=== PATIENT | female | born 1990 | race Caucasian/White ===

== ENCOUNTER 2017-01-09 15:59 | Emergency (ER) | payer OTHER ==
[2017-01-09 16:15] VITALS: BP 141/77; PULSE 92; TEMP 98.3; BMI 38.2
--- NOTE | 2017-01-09 16:49 | PDOC ---
History of Present Illness - General Chief Complaint: Sore Throat Stated Complaint: SORE THROAT Time Seen by Provider: 01/09/17 16:27 History Source: Patient Exam Limitations: No Limitations - History of Present Illness Initial Comments: 01/09/17 16:44 Mom came in for evaluation of cough, chills and fever, runny nose for 2 days. States daughter has been ill for a couple weeks, comes and goes. And thinks may have same type of problem. Has taken some Tylenol with minimal resolved. 01/09/17 16:46 Timing/Duration: reports: just prior to arrival, changing over time, getting worse Severity: reports: moderate Past History - Travel Traveled outside of the country in the last 30 days: No Close contact w/someone who was outside of country & ill: No - Past Medical History Allergies/Adverse Reactions: Allergies Allergy/AdvReac Type Severity Reaction Status Date / Time No Known Allergies Allergy Verified 01/09/17 16:12 Home Medications: Ambulatory Orders NK [No Known Home Medication] 01/09/17 GI Disorders: Yes (GASTRITIS.) - Surgical History Abdominal Surgery: No - Immunization History Immunization Up to Date: Yes - Psycho/Social/Smoking Cessation Hx Anxiety: Yes Suicidal Ideation: No Smoking History: Former smoker Have you smoked in the past 12 months: Yes Number of Cigarettes Smoked Daily: 5 Information on smoking cessation initiated: No 'Breaking Loose' booklet given: 08/09/15 Hx Alcohol Use: No Drug/Substance Use Hx: No Substance Use Type: None Respiratory Specific PMHX - Complaint Specific PMHX Bronchitis: No Pneumonia: No Review of Systems - Review of Systems Able to Perform ROS?: Yes Is the patient limited Macanese proficient: Yes Constitutional: Yes: Symptoms Reported, See HPI, Fever, Malaise HEENTM: Yes: Symptoms Reported, See HPI, Nose Congestion. No: Throat Pain, Throat Swelling Respiratory: Yes: Symptoms reported, See HPI, Cough Musculoskeletal: Yes: Symptoms Reported, See HPI (moist nonproductive), Muscle Pain Integumentary: Yes: Symptoms Reported, See HPI All Other Systems: Reviewed and Negative *Physical Exam - Vital Signs Last Vital Signs Temp Pulse Resp BP Pulse Ox 98.3 F 92 H 18 141/77 100 01/09/17 16:13 01/09/17 16:13 01/09/17 16:13 01/09/17 16:13 01/09/17 16:13 - Physical Exam General Appearance: Yes: Nourished, Appropriately Dressed, Apparent Distress HEENT: positive: BAKARI, Normal ENT Inspection, TMs Normal, Pharynx Normal, Nasal Congestion, Rhinorrhea (congested but landmarks easily visualized). negative: Pharyngeal Erythema, Tonsillar Exudate Neck: positive: Tender, Supple, Lymphadenopathy (R), Lymphadenopathy (L) Respiratory/Chest: positive: Lungs Clear (no wheezing or retractions), Normal Breath Sounds. 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 Will treat conservatively and antihistamines./ *DC/Admit/Observation/Transfer Diagnosis at time of Disposition: Upper respiratory infection, viral - Discharge Dispostion Disposition: HOME Condition at time of disposition: Stable Admit: No - Referrals Referrals: Kiki Bardales MD [Primary Care Provider] - - Patient Instructions Printed Discharge Instructions: DI for Viral Upper Respiratory Infection -- Adult Additional Instructions: Rest, drink lots of fluids: Teas, water, soups, Pedialyte Saltwater gargles Steamy showers/seem to face break up mucus Avoid contact with others until fevers and cough resolved Lots of handwashing and good hygiene Continue [id number] medications for symptomatic relief Tylenol or Motrin for fever and pain Followup with private physician in one to 2 days as needed Return to emergency department for worsened symptoms, fevers, dehydration - Post Discharge Activity Work/School Note: Back to Work
== END 2017-01-09 17:55 | disposition home or self-care (01) ==
LOC: JERFT 15:59
DX: J06.9 Acute upper respiratory infection, unspecified (principal); B97.89 Other viral agents as the cause of diseases classified elsewhere
CPT/HCPCS: 87804; 99281-25

== ENCOUNTER 2017-09-27 08:10 | Emergency (ER) | payer BC, OTHER ==
[2017-09-27 08:20] VITALS: BP 149/91; PULSE 95; TEMP 98.4; BMI 36.6
--- NOTE | 2017-09-27 08:46 | PDOC ---
History of Present Illness - General Chief Complaint: Cold Symptoms Stated Complaint: PAIN/ THROAT, BACK Time Seen by Provider: 09/27/17 08:32 - History of Present Illness Initial Comments: 09/27/17 08:40 27-year-old female with a history of gastritis presents with 5 days of sore throat, nonproductive cough, body aches, runny nose, chill, loose stools and decreased appetite. The patient reports she presents today because the cough kept her up all night. The patient went to [facility] twice this week, was given cefdinir, prednisone and a cough suppressant which she states are minimally helping. She also reports a gradual onset bifrontal dull headache. She does not have a primary care doctor. Denies any chest pain or shortness of breath. Denies focal weakness or numbness. Denies abdominal pain. Denies urinary symptoms or vaginal discharge/bleeding. Past History - Past Medical History Allergies/Adverse Reactions: Allergies Allergy/AdvReac Type Severity Reaction Status Date / Time No Known Allergies Allergy Verified 09/27/17 08:20 Home Medications: Ambulatory Orders NK [No Known Home Medication] 01/09/17 COPD: No GI Disorders: Yes (GASTRITIS.) - Surgical History Abdominal Surgery: No - Immunization History Immunization Up to Date: Yes - Suicide/Smoking/Psychosocial Hx Smoking History: Never smoked Have you smoked in the past 12 months: Yes Number of Cigarettes Smoked Daily: 5 'Breaking Loose' booklet given: 08/09/15 Hx Alcohol Use: No Drug/Substance Use Hx: No Substance Use Type: None Review of Systems - Review of Systems Comments:: 09/27/17 08:48 GENERAL/CONSTITUTIONAL: +fever and chills. No weakness. HEAD, EYES, EARS, NOSE AND THROAT: No change in vision. No ear pain or discharge. +sore throat. GASTROINTESTINAL: No nausea, vomiting, constipation. +loose stools GENITOURINARY: No dysuria, frequency, or change in urination. CARDIOVASCULAR: No chest pain or shortness of breath. RESPIRATORY: +cough, no wheezing, or hemoptysis. MUSCULOSKELETAL: +bodyaches. No neck or back pain. SKIN: No rash NEUROLOGIC: + headache, no vertigo, loss of consciousness, or change in strength /sensation. ENDOCRINE: No increased thirst. No abnormal weight change. HEMATOLOGIC/LYMPHATIC: No anemia, easy bleeding, or history of blood clots. ALLERGIC/IMMUNOLOGIC: No hives or skin allergy. *Physical Exam - Vital Signs Last Vital Signs Temp Pulse Resp BP Pulse Ox 98.4 F 95 H 20 149/91 98 09/27/17 08:17 09/27/17 08:17 09/27/17 08:17 09/27/17 08:17 09/27/17 08:17 - Physical Exam Comments: 09/27/17 08:50 GENERAL: Awake, alert, and fully oriented, in no acute distress HEAD: No signs of trauma EYES: PERRLA, EOMI, sclera anicteric, conjunctiva clear ENT: Auricles normal inspection, hearing grossly normal, nares patent, 1+ tonsillar erythema and edema with no exudates. No palatal petechiae. Moist mucosa NECK: Normal ROM, supple,JVD, or masses. + tender cervical LAD LUNGS: Breath sounds equal, clear to auscultation bilaterally. No wheezes, and no crackles HEART: Regular rate and rhythm, normal S1 and S2, no murmurs, rubs or gallops ABDOMEN: Soft, nontender, normoactive bowel sounds. No guarding, no rebound. No masses EXTREMITIES: Normal range of motion, no edema. No clubbing or cyanosis. No cords, erythema, or tenderness NEUROLOGICAL: Normal speech, cranial nerves intact, negative pronator drift, 5/ 5 strength in all 4 extremities, normal sensation to light touch in all 4 extremities, normal cerebellar exam, normal gait, normal reflexes and tone SKIN: Warm, Dry, normal turgor, no rashes or lesions noted. Medical Decision Making - Medical Decision Making 09/27/17 08:53 27-year-old female with a history of gastritis presents with 5 days of viral symptoms. Unlikely strep throat as patient has early tested negative at [facility] and patient also has a cough. Oral exam with no exudates or petechiae. Patient possibly has influenza but is out of the window for treatment. Advised the patient to stay hydrated, continue the steroids, get a humidifier for the cough at night, and to use her albuterol inhaler. Will give the patient work note so that she can rest. I discussed the physical exam findings, ancillary test results and final diagnoses with the patient. I answered all of the patient's questions. The patient was satisfied with the care received and felt comfortable with the discharge plan and treatment plan. The patient will call their primary care physician within 24 hours to arrange follow-up and will return to the Emergency Department with any new, persistent or worsening symptoms. *DC/Admit/Observation/Transfer Diagnosis at time of Disposition: Upper respiratory infection, viral - Discharge Dispostion Disposition: HOME Condition at time of disposition: Stable Admit: No - Referrals Referrals: Josemanuel Moreno MD [Staff Physician] - - Patient Instructions Printed Discharge Instructions: How to Avoid a Cold or Flu, DI for Viral Upper Respiratory Infection -- Adult, DI for Acute Bronchitis Additional Instructions: Call Dr. Moreno's office to establish care with a primary doctor within 1 week. Continue to take the cough medication and prednisone, and use your inhaler every 4 hours as needed for the cough. Use a humidifier at home at this may help with the cough as well. Return to the emergency department if you have any new, worsening or concerning symptoms. - Post Discharge Activity - Attestations Physician Attestion: 09/27/17 08:56 I, Dr. Veronica Brooks MD, attest that this document has been prepared under my direction and personally reviewed by me in its entirety. I further attest, that it accurately reflects all work, treatment, procedures and medical decision -making performed by me.
== END 2017-09-27 09:35 | disposition home or self-care (01) ==
LOC: JER 08:10
DX: J06.9 Acute upper respiratory infection, unspecified (principal); B97.89 Other viral agents as the cause of diseases classified elsewhere; F17.210 Nicotine dependence, cigarettes, uncomplicated
CPT/HCPCS: 99281-25

== ENCOUNTER 2018-08-02 08:43 | Emergency (ER) | payer BC ==
[2018-08-02 08:51] VITALS: BP 119/82; PULSE 84; TEMP 99; BMI 39.1
--- NOTE | 2018-08-02 09:17 | PDOC ---
History of Present Illness - General Chief Complaint: Urinary Problem Stated Complaint: URINARY PROBLEM Time Seen by Provider: 08/02/18 09:11 History Source: Patient Exam Limitations: Clinical Condition - History of Present Illness Initial Comments: 08/02/18 09:14 Patient with no sig Past medical history presenting with complain of urinary frequency and dysuria since yesterday. Denies fever, chills, abdominal pain, back pain, nausea or vomiting. Denies any vaginal discharge or irritation. Timing/Duration: 24 hours Past History - Past Medical History Allergies/Adverse Reactions: Allergies Allergy/AdvReac Type Severity Reaction Status Date / Time No Known Allergies Allergy Verified 08/02/18 08:48 Home Medications: Ambulatory Orders Ciprofloxacin HCl [Cipro] 500 mg PO BID #10 tablet 08/02/18 COPD: No GI Disorders: Yes (GASTRITIS.) - Surgical History Abdominal Surgery: No - Immunization History Immunization Up to Date: Yes - Suicide/Smoking/Psychosocial Hx Smoking History: Current every day smoker Have you smoked in the past 12 months: Yes Number of Cigarettes Smoked Daily: 5 Information on smoking cessation initiated: Yes 'Breaking Loose' booklet given: 08/02/18 Hx Alcohol Use: No Drug/Substance Use Hx: No Substance Use Type: None Review of Systems - Review of Systems Able to Perform ROS?: Yes Is the patient limited Upper Sorbian proficient: No Constitutional: No: Chills, Fever, Malaise Respiratory: No: Symptoms reported Cardiac (ROS): No: Symptoms Reported ABD/GI: No: Symptoms Reported, Nausea, Vomiting : Yes: Dysuria, Frequency, Urgency. No: Burning, Discharge, Flank Pain, Hematuria All Other Systems: Reviewed and Negative *Physical Exam - Vital Signs Last Vital Signs Temp Pulse Resp BP Pulse Ox 99.0 F 84 18 119/82 96 08/02/18 08:48 08/02/18 08:48 08/02/18 08:48 08/02/18 08:48 08/02/18 08:48 - Physical Exam Comments: 08/02/18 09:15 GENERAL: Well developed, well nourished. Awake and alert. No acute distress. CARDIOVASCULAR: Regular rate and rhythm. No murmurs, rubs, or gallops. Distal pulses are 2+ and symmetric. PULMONARY: No evidence of respiratory distress. Lungs clear to auscultation bilaterally. No wheezing, rales or rhonchi. ABDOMINAL: Soft. Non-tender. Non-distended. No rebound or guarding. No organomegaly. Normoactive bowel sounds. MUSCULOSKELETAL Normal range of motion at all joints. No bony deformities or tenderness. No CVA tenderness. EXTREMITIES: No cyanosis. No clubbing. No edema. No calf tenderness. SKIN: Warm and dry. Normal capillary refill. No rashes. No jaundice. NEUROLOGICAL: Alert, awake, appropriate. Gait is normal without ataxia. PSYCHIATRIC: Cooperative. Good eye contact. Appropriate mood and affect. General Appearance: Yes: Nourished, Appropriately Dressed. No: Apparent Distress Medical Decision Making - Medical Decision Making 08/02/18 09:16 Patient with no significant past medical history present with complain of 2 day history of urinary frequency dysuria and urgency with no other symptoms. UA and urine culture sent. Urine hCG ordered. Treat based on lab results 08/02/18 09:58 Urine hCG negative. Urinalysis shows mild leukocytosis. Patient be discharged home on outpatient treatment with Cipro antibiotics pending culture results *DC/Admit/Observation/Transfer Diagnosis at time of Disposition: UTI (urinary tract infection) Qualifiers: Urinary tract infection type: acute cystitis Hematuria presence: without hematuria Qualified Code(s): N30.00 - Acute cystitis without hematuria - Discharge Dispostion Disposition: HOME Condition at time of disposition: Stable Decision to Admit order: No - Prescriptions Prescriptions: Ciprofloxacin HCl [Cipro] 500 mg PO BID #10 tablet - Referrals Referrals: Mauricio Mcfadden MD [Staff Physician] - - Patient Instructions Printed Discharge Instructions: DI for Urinary Tract Infection (UTI) Additional Instructions: Your urine dip showed mild bacteria. Take prescribed medication as prescribed. Use be contacted which urine culture results. Increase fluid intake - Post Discharge Activity
[2018-08-02 09:28] LABS: HCG,QUALITATIVE URINE Negative
[2018-08-02 09:43] LABS: URINE APPEARANCE CLEAR; URINE BILIRUBIN NEGATIVE (<2.0 mg/dL); URINE COLOR LTYELLOW; URINE GLUCOSE (UA) NEGATIVE (NEGATIVE); URINE KETONE NEGATIVE (NEGATIVE); URINE LEUK ESTERASE TRACE (NEGATIVE); URINE NITRITE NEGATIVE (NEGATIVE); URINE PROTEIN NEGATIVE (NEGATIVE); URINE UROBILINOGEN NEGATIVE mg/dL (0.2-1.0)
[2018-08-02 09:49] LABS: EPI CELLS RARE /HPF (FEW); URINE BACTERIA RARE /hpf (NONE SEEN)
== END 2018-08-02 10:04 | disposition home or self-care (01) ==
LOC: JERFT 08:43
DX: N30.00 Acute cystitis without hematuria (principal); F17.210 Nicotine dependence, cigarettes, uncomplicated
CPT/HCPCS: 81003; 81015; 84703; 87086; 99281-25

== ENCOUNTER 2018-08-26 07:45 | Emergency (ER) | payer BC ==
[2018-08-26 07:54] VITALS: BMI 39.1
[2018-08-26] MEDS ORDERED: ALBUTEROL SO4 2.5/IPRATROPIUM 0.5 INH SOL 3 ML VIAL.NEB. NEB ONE ×2 (08:07→08:18)
--- NOTE | 2018-08-26 08:12 | PDOC ---
History of Present Illness - General Chief Complaint: Respiratory Stated Complaint: S.O.B. Time Seen by Provider: 08/26/18 07:54 History Source: Patient Exam Limitations: No Limitations - History of Present Illness Initial Comments: 08/26/18 08:08 Pt is a 28yo f with PMH of migraines presenting to ED with complaints of SOB, cough, congestion and wheezing [id number]. Pt says she went to her PMD office 4 days ago and was given a course of steroids 25mg BID but it has not been helping. She says today she felt more SOB, tried her inhaler and her daughter's nebulizer but nothing helped. Pt says she feels SOB all the time, has been coughing up white phlegm but is sometimes green and has congestion. She admits to chills and chest pain from coughing and some lower back pain. She had a headache yesterday which felt like her migraines. Denies fever, ear pain, sore throat, myalgia, arthralgia, abdominal pain, n/v/d, urinary symptoms. Daughter is also sick at home. She has not received the flu shot this year. She smokes around 5 cigarettes/day [id number]. PMD: Nakli? PMH: migraines PSH: Meds: prednisone Social: 5cigarettes/day Allergies: nkda Past History - Past Medical History Allergies/Adverse Reactions: Allergies Allergy/AdvReac Type Severity Reaction Status Date / Time No Known Allergies Allergy Verified 08/26/18 07:52 Home Medications: Ambulatory Orders Albuterol Sulfate Inhaler - [Ventolin Hfa Inhaler -] 1 - 2 inh PO Q4H PRN Azithromycin [Zithromax 250mg Tablets -] 250 mg PO UTDICT #6 tab 08/26/18 Fluticasone Prop 0.05% Nasal [Flonase -] 1 - 2 spray NS DAILY #1 spray.pump 09/02 Loratadine [Claritin -] 10 mg PO DAILY #7 tablet 08/26/18 Prednisone [Prednisone 50 MG TABLETS] 25 mg PO BID 08/26/18 COPD: No GI Disorders: Yes (GASTRITIS.) Other medical history: bronchitis - Surgical History Abdominal Surgery: No - Immunization History Immunization Up to Date: Yes - Suicide/Smoking/Psychosocial Hx Smoking History: Current every day smoker Have you smoked in the past 12 months: Yes Number of Cigarettes Smoked Daily: 5 Information on smoking cessation initiated: No 'Breaking Loose' booklet given: 08/02/18 Hx Alcohol Use: No Drug/Substance Use Hx: No Substance Use Type: None Review of Systems - Review of Systems Constitutional: Yes: Chills. No: Fever, Night Sweats HEENTM: Yes: Nose Congestion. No: Eye Pain, Ear Pain, Throat Pain Respiratory: Yes: Cough, Shortness of Breath, Productive cough (white to green phlegm). No: Hemoptysis Cardiac (ROS): Yes: Chest Pain. No: Lightheadedness, Palpitations, Syncope ABD/GI: No: Constipated, Diarrhea, Nausea, Vomiting, Abdominal cramping : No: Burning, Dysuria, Hematuria Musculoskeletal: Yes: Back Pain (lower back pain). No: Joint Pain, Muscle Pain , Muscle Weakness, Neck Pain, Joint Stiffness Integumentary: No: Rash Neurological: Yes: Headache (yesterday). No: Numbness, Tingling, Tremors, Weakness *Physical Exam - Vital Signs Last Vital Signs Temp Pulse Resp BP Pulse Ox 97.7 F 79 18 114/79 95 08/26/18 07:49 08/26/18 07:49 08/26/18 07:49 08/26/18 07:49 08/26/18 07:49 - Physical Exam General Appearance: Yes: Nourished, Appropriately Dressed. No: Apparent Distress HEENT: positive: EOMI, BAKARI, TMs Normal, Pharynx Normal, Sinus Tenderness. negative: Photophobia, Nasal Congestion, Rhinorrhea Neck: positive: Trachea midline, Supple. negative: Lymphadenopathy (R), Lymphadenopathy (L) Respiratory/Chest: positive: Rhonchi Cardiovascular: positive: Regular Rhythm, Regular Rate, S1, S2. negative: Edema , JVD, Murmur Vascular Pulses: Carotid (R): 2+, Carotid (L): 2+, Dorsalis-Pedis (R): 2+, Doralis-Pedis (L): 2+ Musculoskeletal: negative: CVA Tenderness Extremity: positive: Normal Capillary Refill Integumentary: positive: Normal Color, Dry, Warm Neurologic: positive: marina porter II-XII NML intact, Fully Oriented, Alert, Normal Mood/ Affect, Normal Response, Motor Strength 02/17 ED Treatment Course - LABORATORY CBC & Chemistry Diagram: 08/26/18 08:30 08/26/18 08:30 Medical Decision Making - Medical Decision Making 08/26/18 08:12 Pt is a 28yo f with no significant PMH presenting to ED with complaints of SOB, cough, congestion and wheezing [id number]. Vitals: Selected Entries 08/26/18 08/26/18 07:49 08:10 Temperature 97.7 F Pulse Rate 79 Respiratory 18 Rate Respiratory Non-Labored Effort Blood Pressure 114/79 Blood Pressure 90 Mean O2 Sat by Pulse 96 Oximetry (%) PE: slight rhonchi in L lung field, otherwise clear. cough heard. rest of exam is benign. DDx: pna, bronchitis, viral uri, pericarditis, pneumonitis. low suspicion for cardiac causes of symptoms (pt is young, no significant PMH , no new medications other than prednisone). Will order xray, labs and give duoneb to help with opening airway. Will reevaluate 08/26/18 08:54 Laboratory Tests 08/26/18 08:30 WBC 13.2 H Hgb 13.1 Hct 39.1 Plt Count 232 D White count elevated, however pt is taking 25mg prednisone BID. Could be due to steroid use. Other labs pending. 08/26/18 08:55 *DC/Admit/Observation/Transfer Diagnosis at time of Disposition: Upper respiratory infection, viral - Discharge Dispostion Disposition: HOME Condition at time of disposition: Good Decision to Admit order: No - Prescriptions Prescriptions: Azithromycin [Zithromax 250mg Tablets -] 250 mg PO UTDICT #6 tab Fluticasone Prop 0.05% Nasal [Flonase -] 1 - 2 spray NS DAILY #1 spray.pump Loratadine [Claritin -] 10 mg PO DAILY #7 tablet - Referrals - Patient Instructions Printed Discharge Instructions: DI for Viral Upper Respiratory Infection -- Adult Additional Instructions: You were seen here today for cough, congestion and shortness of breath. Your labs were normal and xray does not show signs of pneumonia. You most likely have an upper respiratory tract infection. I have sent a prescription over to your pharmacy for Z-Pack, Flonase and Claritin, take as directed. These can help with your symptoms. I recommend using a humidifier at home to help with dryness. I also recommend you try to stop smoking! It is difficult but it will help you in the long run. Please come back to the ED if cough gets worse, you feel more short of breath, you develop fever, or if any new concerning symptom develops. Thank you - Post Discharge Activity
[2018-08-26 08:41] LABS: BASO % 0.7 % (0-2.0); EOS % 1.7 % (0-4.5); HEMATOCRIT 39.1 % (32.4-45.2); HEMOGLOBIN 13.1 GM/dL (10.7-15.3); LYMPH % 25.8 % (8-40); MCH 28.2 pg (25.7-33.7); MCHC 33.5 g/dl (32.0-36.0); MEAN PLT VOLUME 9.8 fl (7.5-11.1); MONO % 6.1 % (3.8-10.2); NEUT % 65.7 % (42.8-82.8); PLATELET COUNT 232 K/MM3 (134-434); RBC 4.66 M/mm3 (3.60-5.2); RDW 13.1 % (11.6-15.6); WHITE BLOOD COUNT 13.2 K/mm3 (4.0-10.0)
[2018-08-26 09:25] LABS: ALBUMIN 3.5 g/dl (3.4-5.0); ALK PHOS 119 U/L (45-117); ANION GAP 7 MMOL/L (8-16); BILIRUBIN,TOTAL 0.2 mg/dL (0.2-1); BLOOD UREA NITROGEN 11 mg/dL (7-18); CALCIUM 8.1 mg/dL (8.5-10.1); CHLORIDE 106 mmol/L (98-107); CO2 27 mmol/L (21-32); CREATININE 0.6 mg/dL (0.55-1.3); GLUCOSE,RANDOM 99 mg/dL (74-106); POTASSIUM 3.9 mmol/L (3.5-5.1); SGOT/AST 14 U/L (15-37); SGPT/ALT 29 U/L (13-61); SODIUM 140 mmol/L (136-145); TOT PROT 6.9 g/dl (6.4-8.2)
--- NOTE | 2018-08-26 09:28 | PDOC ---
Attending Attestation - Resident Resident Name: MaggieSaSoledad - ED Attending Attestation I have performed the following: I have examined & evaluated the patient, The case was reviewed & discussed with the resident, I agree w/resident's findings & plan, Exceptions are as noted - HPI HPI: 08/26/18 09:25 28 yo F with h/o tobacco use here with cough congestion wheezing and sob for one month. recently started on steroids by pcp. no f/c no cp no leg swelling. does also have seasonal allergies with post nasal drip. used daughter inhaler no relief. no leg swelling no other complaints. 08/26/18 09:33 - Physicial Exam PE: 08/26/18 09:34 awake alert lungs clear bilaterally ( post neb) heart reg tachycardia. no mrg abd soft nt nd. ext wwp. no edema. nuero alert oriented x 3. - Medical Decision Making 08/26/18 09:34 28 yo Smoker here with cough congestion and wheezing. diffrential bronchitis with bronchospasm, viral sxs, allergic trigerre, post nasal drip pna. plan cxr duonebs. ucg labs. reassess. pt much improved following duoneb. cxr negative. labs unremarkable. ucg normal. educated regarding need for smoking cessation, also receommend allergic medication such as zyrtec or claritin and flonase. will dc wiht rx for albuterol inhaler.
[2018-08-26 11:15] VITALS: BP 125/83; PULSE 82; TEMP 97.6
== END 2018-08-26 11:15 | disposition home or self-care (01) ==
LOC: JER 07:45
PROC: 3E0F7GC Introduction of Other Therapeutic Substance into Respiratory Tract, Via Natural or Artificial Opening (ICD-10-PCS; principal; 2018-08-26)
DX: J06.9 Acute upper respiratory infection, unspecified (principal); B97.89 Other viral agents as the cause of diseases classified elsewhere
CPT/HCPCS: 36415; 71046-TC-FY; 80053; 84703; 85025; 87804; 99284-25

== ENCOUNTER 2019-01-06 05:59 | Emergency (ER) | payer BC ==
[2019-01-06 06:26] VITALS: BP 120/90; PULSE 87; TEMP 97.7; BMI 81.8
[2019-01-06] MEDS ORDERED: IBUPROFEN 400 MG TABLET (FP) PO ONE ×2 (07:39→07:44)
--- NOTE | 2019-01-06 07:49 | PDOC ---
History of Present Illness - General Chief Complaint: Ear Problem Stated Complaint: LEFT EAR PAIN Time Seen by Provider: 01/06/19 07:32 History Source: Patient Exam Limitations: No Limitations - History of Present Illness Initial Comments: 01/06/19 07:42 Patient is a 28F with no significant medical problems here today complaining of ear pain that onset acutely this morning. Patient endorses URI symptoms starting yesterday including rhinorrhea, subjective fevers, cough, feeling of sinus fullness. Patient's son is sick with similar symptoms and was just diagnosed with an ear infection. Patient endorses using q-tip and large nails to scratch in ear. Denies shortness of breath, cough, abdominal pain, nausea, vomiting. Past History - Past Medical History Allergies/Adverse Reactions: Allergies Allergy/AdvReac Type Severity Reaction Status Date / Time No Known Allergies Allergy Verified 08/26/18 07:52 Home Medications: Ambulatory Orders NK [No Known Home Medication] 01/06/19 COPD: No GI Disorders: Yes (GASTRITIS.) - Surgical History Abdominal Surgery: No - Immunization History Immunization Up to Date: Yes - Suicide/Smoking/Psychosocial Hx Smoking History: Current every day smoker Have you smoked in the past 12 months: Yes Number of Cigarettes Smoked Daily: 2.0 Cigars Per Day: 2 Information on smoking cessation initiated: Yes 'Breaking Loose' booklet given: 08/02/18 Hx Alcohol Use: No Drug/Substance Use Hx: No Substance Use Type: None Review of Systems - Review of Systems Able to Perform ROS?: Yes Comments:: 01/06/19 07:44 GENERAL/CONSTITUTIONAL: No fever or chills. No weakness. HEAD, EYES, EARS, NOSE AND THROAT: No change in vision. +L ear pain no discharge. No sore throat. CARDIOVASCULAR: No chest pain or shortness of breath RESPIRATORY: +cough, no wheezing, or hemoptysis. GASTROINTESTINAL: No nausea, vomiting, diarrhea or constipation. GENITOURINARY: No dysuria, frequency, or change in urination. MUSCULOSKELETAL: No joint or muscle swelling or pain. No neck or back pain. SKIN: No rash NEUROLOGIC: +headache, no vertigo, loss of consciousness, or change in strength/ sensation. ENDOCRINE: No increased thirst. No abnormal weight change HEMATOLOGIC/LYMPHATIC: No anemia, easy bleeding, or history of blood clots. ALLERGIC/IMMUNOLOGIC: No hives or skin allergy. *Physical Exam - Vital Signs Last Vital Signs Temp Pulse Resp BP Pulse Ox 97.7 F 87 20 120/90 99 01/06/19 06:24 01/06/19 06:24 01/06/19 06:24 01/06/19 06:24 01/06/19 06:24 - Physical Exam Comments: 01/06/19 07:46 GENERAL: Awake, alert, and fully oriented, in no acute distress HEAD: No signs of trauma, normocephalic, atraumatic EYES: PERRLA, EOMI, sclera anicteric, conjunctiva clear ENT: Auricles normal inspection, hearing grossly normal, nares patent, oropharynx erythema bilaterally. Moist mucosa. EARS: R ear normal. L ear shows linear abrasion from 6-10 o'clock, no fluid or TM rupture. No mastoid tenderness NECK: Normal ROM, supple, no lymphadenopathy, JVD, or masses LUNGS: No distress, speaks full sentences, clear to auscultation bilaterally HEART: Regular rate and rhythm, normal S1 and S2, no murmurs, rubs or gallops, peripheral pulses normal and equal bilaterally. ABDOMEN: Soft, nontender, normoactive bowel sounds. No guarding, no rebound. No masses EXTREMITIES: Normal inspection, Normal range of motion, no edema. No clubbing or cyanosis. NEUROLOGICAL: Cranial nerves II through XII grossly intact. Normal speech, normal gait, no focal sensorimotor deficits SKIN: Warm, Dry, normal turgor, no rashes or lesions noted. Moderate Sedation - Procedure Monitoring Vital Signs: Procedure Monitoring Vital Signs Temperature 97.7 F 01/06/19 06:24 Pulse Rate 87 01/06/19 06:24 Respiratory Rate 20 01/06/19 06:24 Blood Pressure 120/90 01/06/19 06:24 O2 Sat by Pulse Oximetry (%) 99 01/06/19 06:24 Medical Decision Making - Medical Decision Making 01/06/19 07:47 Patient is a 28F here today with URI and abrasion to L ear caused by external trauma. Vitals normal and stable. Do not suspect otitis media, otitis externa, mastoiditis. Will discharge with instructions to take motrin for pain and sudafed to relieve congestion. *DC/Admit/Observation/Transfer Diagnosis at time of Disposition: Upper respiratory infection, viral Injury of tympanic membrane of left ear Qualifiers: Encounter type: initial encounter Qualified Code(s): S09.302A - Unspecified injury of left middle and inner ear, initial encounter - Discharge Dispostion Disposition: HOME Condition at time of disposition: Good Decision to Admit order: No - Referrals - Patient Instructions Printed Discharge Instructions: DI for Viral Upper Respiratory Infection -- Adult Additional Instructions: Please take motrin 600mg up to 3 times per day for pain in your ear. Please take 12 hour pseudophedrine twice per day for the next 5 days as needed for congestion. Please return if you develop worsening pain, fever, or shortness of breath. - Post Discharge Activity
--- NOTE | 2019-01-06 08:33 | PDOC ---
Attending Attestation - Resident Resident Name: [email or web address] - ED Attending Attestation I have performed the following: I have examined & evaluated the patient, The case was reviewed & discussed with the resident, I agree w/resident's findings & plan, Exceptions are as noted - HPI HPI: 28 yo F presents with L ear pain and fullness x1 day. She states she uses Qtips and her fingernails to scratch her ears. No discharge from the ear. No fever. - Physicial Exam PE: GENERAL: Awake, alert, and fully oriented, in no acute distress HEAD: No signs of trauma EYES: PERRLA, EOMI, sclera anicteric, conjunctiva clear ENT: Auricles normal inspection, hearing grossly normal, nares patent, oropharynx clear without exudates. Moist mucosa. L TM with small linear erythematous area, no bleeding. TM intact. EAC normal on L. NECK: Normal ROM, supple, no lymphadenopathy, JVD, or masses SKIN: Warm, Dry, normal turgor, no rashes or lesions noted. - Medical Decision Making The TM finding is likely irritation due to use of fingernails and Qtips. Counseled her to use peroxide/warm water if the wax is bothering her, but never insert any objects into the ear. No signs of infection. Stable for DC home.
== END 2019-01-06 08:00 | disposition home or self-care (01) ==
LOC: JER 05:59
DX: J06.9 Acute upper respiratory infection, unspecified (principal); S09.302A Unspecified injury of left middle and inner ear, initial encounter; W22.8XXA Striking against or struck by other objects, initial encounter; Y93.E8 Activity, other personal hygiene; Y92.038 Other place in apartment as the place of occurrence of the external cause; Y99.8 Other external cause status
CPT/HCPCS: 99282-25

== ENCOUNTER 2022-03-16 17:46 | Emergency (ER) | payer BC ==
[2022-03-16 17:51] VITALS: BP 131/82; PULSE 62; TEMP 98.6; BMI 35.1
[2022-03-16] MEDS ORDERED: MAG HYDROX/AL HYDROX/SIMETH -MYLANTA- ORAL SUSPENSION PO ONE (20:21)
[2022-03-16] MEDS ORDERED: FAMOTIDINE 20 MG/50 ML IVPB 20 MG/50 ML MG IVPB ONE ×2 (20:21→21:40)
[2022-03-16] MEDS ORDERED: MAG HYDROX/AL HYDROX/SIMETH 30 ML UNIT-DOSE CUP ONE (21:39)
[2022-03-16] MEDS ORDERED: SODIUM CHLORIDE 0.9% 500 ML INFUS.BAG IV ONE (21:45)
[2022-03-16 21:48] LABS: BASO % 0.4 % (0-2.0); EOS % 1.6 % (0-4.5); HEMATOCRIT 38.2 % (32.4-45.2); LYMPH % 16.1 % (8-40); MCH 29.2 pg (25.7-33.7); MCHC 34.1 g/dl (32.0-36.0); MEAN CELL VOLUME 85.5 fl (80-96); MEAN PLT VOLUME 10.9 fl (7.5-11.1); MONO % 5.3 % (3.8-10.2); NEUT % 76.6 % (42.8-82.8); PLATELET COUNT 203 10^3/uL (134-434); RBC 4.47 M/mm3 (3.60-5.2); RDW 14.5 % (11.6-15.6); WHITE BLOOD COUNT 7.8 K/mm3 (4.0-10.0)
[2022-03-16 23:06] LABS: CALCIUM 9.7 mg/dL (8.5-10.1)
[2022-03-16 23:07] LABS: ALBUMIN 4.1 g/dl (3.4-5.0); BLOOD UREA NITROGEN 10.4 mg/dL (7-18)
[2022-03-16 23:10] LABS: CREATININE 0.7 mg/dL (0.55-1.3)
[2022-03-16 23:11] LABS: BILIRUBIN,TOTAL 3.5 mg/dL (0.2-1); TOT PROT 7.8 g/dl (6.4-8.2)
== END 2022-03-17 00:47 | disposition left against medical advice (07) ==
LOC: JER 17:46
PROC: 3E033GC Introduction of Other Therapeutic Substance into Peripheral Vein, Percutaneous Approach (ICD-10-PCS; principal; 2022-03-16)
DX: R10.13 Epigastric pain (principal); K82.9 Disease of gallbladder, unspecified; Z98.84 Bariatric surgery status
CPT/HCPCS: 36415; 74176-TC; 76705-TC; 80053; 83605; 83690; 84484; 84703; 85025; 93005; 93010; 99285-25; Q9967